=== PATIENT | male | born 1990 | race Caucasian/White ===

== ENCOUNTER 2020-07-20 17:07 | Emergency (ER) | payer BC, OTHER ==
[~2020-07-20] VITALS: Ht 177.8 cm; Wt 115.7 kg
[2020-07-20 17:28] VITALS: BP 140/93
--- NOTE | 2020-07-20 17:31 | NUR ---
PT AMBULATED TO OVERFLOW TENT, STEADY GAIT.
--- NOTE | 2020-07-20 18:58 | NUR ---
COVID SWAB COLLECTED AND GIVEN TO PHLEB.
[2020-07-20 19:02] VITALS: BP 140/93
--- NOTE | 2020-07-20 19:03 | NUR ---
Patient discharged with v/s stable. Written and verbal after care instructions given and explained. Patient verbalized understanding. Ambulatory with steady gait. All questions addressed prior to discharge. Advised to follow up with PMD.
== END 2020-07-20 19:02 | disposition home or self-care (01) ==
LOC: MED 17:07
DX: R43.8 Other disturbances of smell and taste (principal); Z20.828 Contact with and (suspected) exposure to other viral communicable diseases; B34.9 Viral infection, unspecified
CPT/HCPCS: 99283; U0003

== ENCOUNTER 2021-05-04 10:53 | Emergency (ER) | payer BC ==
[~2021-05-04] VITALS: Ht 175.3 cm; Wt 113.4 kg
[2021-05-04 11:05] VITALS: BP 147/93
--- NOTE | 2021-05-04 11:11 | NUR ---
PATIENT AMBULATED TO BED 2.
[2021-05-04] MEDS ORDERED: KETOROLAC 30 MG/ML VIAL IM ONE (11:25)
--- NOTE | 2021-05-04 11:30 | NUR ---
31 Y/O MALE BIBS WITH C/O 9/10 R FOOT PAIN X3 DAYS. DESCRIBES SHARP, AND CONSTANT. PT STATES HE WAS ON HIS FEET ALL DAY TUESDAY AT WORK, TUESDAY SORE, AND PAIN STARTED WORSENING TUESDAY THAT HE COULD NOT WALK ON IT. DENIES TRAUMA. PATIENTS FOOT APPEARS REDDENED, AND MILD SWELLING COMPARED TO LEFT FOOT. PATIENT HAS +3 PEDAL PULSES, SENSATION AND ROM INTACT WITH PAIN TO RIGHT FOOT. PMH:DENIES NKDA
--- NOTE | 2021-05-04 11:32 | NUR ---
RAD AT BEDSIDE FOR XRAY
[2021-05-04] MEDS ORDERED: NAPR-54 PO (12:00)
--- NOTE | 2021-05-04 12:21 | NUR ---
Patient discharged with v/s stable. Written and verbal after care instructions given and explained. Patient alert, oriented and verbalized understanding of instructions. Ambulatory with steady gait. All questions addressed prior to discharge. ID band removed. Patient advised to follow up with PMD. Rx of NAPROXIN given. Patient educated on indication of medication including possible reaction and side effects. Opportunity to ask questions provided and answered.
== END 2021-05-04 12:21 | disposition home or self-care (01) ==
LOC: MED 10:53
DX: M25.571 Pain in right ankle and joints of right foot (principal); X58.XXXA Exposure to other specified factors, initial encounter; Y93.89 Activity, other specified; Y92.89 Other specified places as the place of occurrence of the external cause; Y99.8 Other external cause status
CPT/HCPCS: 73630; 96372; 99283; J1885